=== PATIENT | male | born 1965 ===

== ENCOUNTER 2023-06-20 06:23 | Outpatient (CLI) | payer OTHER ==
[~2023-06-20] VITALS: Ht 170.2 cm; Wt 101.2 kg
[2023-06-21] MEDS ORDERED: CINN500C2 PO (08:28)
[2023-06-21] MEDS ORDERED: ECHI80CA PO (08:28)
[2023-06-21] MEDS ORDERED: MELA5CAP PO (08:28)
[2023-06-21] MEDS ORDERED: VITA0.4T18 PO (08:28)
[2023-06-21] MEDS ORDERED: LEVO5TAB28 PO (08:28)
[2023-06-21] MEDS ORDERED: ELDE350C PO (08:28)
[2023-06-21] MEDS ORDERED: GING550C4 PO (08:28)
[2023-06-21] MEDS ORDERED: [UNRECOGNIZED DRUG - CODE] PO (08:28)
[2023-06-21] MEDS ORDERED: OMEP20TA56 PO (08:28)
[2023-06-21] MEDS ORDERED: ASCO500C17 PO (08:28)
[2023-06-21] MEDS ORDERED: ERGO400C PO (08:28)
[2023-06-21] MEDS ORDERED: MULT-1029 PO (08:28)
[2023-06-21] MEDS ORDERED: OMEG1CAP58 PO (08:28)
[2023-06-21] MEDS ORDERED: SACC250C9 PO (08:28)
== END 2023-06-21 08:35 | disposition home or self-care (01) ==
LOC: PREOP 06:23
PROVIDERS: ATTEND Surgery
DX: Z01.818 Encounter for other preprocedural examination (principal)